=== PATIENT | male | born 1955 | race Caucasian/White ===

== ENCOUNTER 2016-09-30 07:37 | Day surgery (SDC) | payer BC, OTHER ==
--- NOTE | 2016-09-23 09:55 | HISTORY AND PHYSICAL E ---
History and Physical NAME: FAITH SHANNON : 1955 AGE: 61Y ADMITTED: 09/30/2016 ROOM: CHIEF COMPLAINT: History of polyps. PHYSICAL EXAMINATION: VITAL SIGNS: Blood pressure 130/70, pulse 80, respirations 20, temp 98. HEAD,EYES, EARS, NOSE, THROAT: Normal. ABDOMEN: Soft. NEUROLOGIC: Negative. HISTORY OF PRESENT ILLNESS: I saw the patient in 2002 where he presented with diarrhea and abdominal pain. Patient did have upper scope and it shows the following. Patient did have history of polyps. He has strong family history of colon cancer. He is referred to us by [facility]. Colonoscopy in 2007 shows hyperplastic polyp. The patient did have colonoscopy in 2011. It shows polyps in the rectum. His most recent colonoscopy was done in 2015 and it was non-conclusive, inadequate prep, question sessile polyp. The patient did have sessile polyp in the ascending colon between cecum and ascending. Biopsy obtained and the biopsy came back tubular adenoma. CONCLUSION: Right colon adenoma polyp. Poor prep on previous colon. PLAN: Colonoscopy. MEDICATIONS: 1. Naproxen. 2. Omeprazole. 3. Lisinopril. DICTATING PHYSICIAN: JENNY BOBBY M.D. [id number] PHY#: [id number] ID: [id number] JOB#: [id number] ACCT: [id number] cc:JENNY BOBBY M.D. >
[~2016-09-30 07:37] MED LIST: EPINEPHRINE INJ 1 MG/10 ML DISP.SYRIN ONE; FENTANYL CITRATE INJ/PF 100 MCG/2 ML AMPUL ONE; FLUMAZENIL INJ 0.5 MG/5 ML VIAL IV ONE; GLUCAGON,HUMAN RECOMB 1 MG INJ ONE; GLYCOPYRROLATE INJ 0.4 MG/2 ML VIAL ONE; LIDOCAINE 2% JELLY 30 ML TUBE ONE; NALOXONE HCL INJ/PF 0.4 MG/1 ML SDV ONE; ONDANSETRON HCL INJ/PF 4 MG/2 ML SDV ONE; PROMETHAZINE HCL INJ 25 MG/1 ML VIAL ONE
[2016-09-30] MEDS: MIDAZOLAM 2 MG/2 ML INJ ONE ×2 (08:05→08:15)
[2016-09-30 09:21] VITALS: BP 102/61
--- NOTE | 2016-09-30 10:34 | OPERATIVE REPORT E ---
Operative Report NAME: FAITH SHANNON : 1955 AGE: 61Y DATE OF SURGERY: 09/30/2016 ROOM: PREOPERATIVE DIAGNOSES: 1. History of polyps. 2. Colon screening. PROCEDURE: 1. Colonoscopy. 2. Tissue biopsy polyp transverse colon. SURGEON: JENNY BOBBY M.D. TISSUE REMOVED OR ALTERED: Biopsy polyp midtransverse colon, size 2-3 mm. DESCRIPTION: Rectal exam normal. Sigmoid descending colon normal. Transverse colon shows a small 3 mm polyp redundant transverse colon. Polyp biopsy obtained. Ascending colon normal. Cecum normal. Scope withdrawn. Cecum ascending normal. Transverse colon with a small 2-3 mm size polyp. Biopsy obtained. Sigmoid descending colon normal. Rectal normal. CONCLUSION: A small benign looking polyp, 2-3 mm, most likely adenoma. Biopsy obtained. Recommend followup colonoscopy in 2 years. DICTATING PHYSICIAN: JENNY BOBBY M.D. [id number] PHY#: [id number] ID: [id number] JOB#: [id number] ACCT: [id number] cc:JENNY BOBBY M.D. >
--- NOTE | 2016-09-30 10:34 | DISCHARGE SUMMARY E ---
Discharge Summary NAME: FAITH SHANNON : 1955 AGE: 61Y ADMITTED: 09/30/2016 DISCHARGED: 09/30/2016 PROCEDURE: Colonoscopy, biopsy. FINAL DIAGNOSIS: A 3 mm polyp in the mid transverse colon. HISTORY OF PRESENT ILLNESS: A 61-year-old gentleman presented for colon exam. He does have previous colonoscopy showing question adenoma polyps. Today's colonoscopy was successful to the cecum. Patient did have moderate amount of stool. Redundant transverse colon. Moderate amount of liquid stool in the transverse colon. Patient does have history of bronchitis, pneumonia, bilateral total hip replacement, reflux, and hypertension. Smokes 1/2 pack daily. He does have history of chronic pain and arthritis. Today's colonoscopy shows no evidence of malignancy. A 3 mm benign looking polyp most likely adenoma. Biopsy obtained. DISCHARGE PLAN: Soft diet. Hold naproxen and aspirin 3-5 days. Awaiting biopsy results. Consider age and followup colonoscopy after 2 years. DICTATING PHYSICIAN: JENNY BOBBY M.D. [id number] PHY#: [id number] ID: [id number] JOB#: [id number] ACCT: [id number] cc:JENNY BOBBY M.D. >
== END 2016-09-30 09:25 | disposition home or self-care (01) ==
LOC: END 07:37
PROVIDERS: ATTEND Specialist
PROC: 0DBL8ZX Excision of Transverse Colon, Via Natural or Artificial Opening Endoscopic, Diagnostic (ICD-10-PCS; principal; 2016-09-30 08:00)
DX: Z12.11 Encounter for screening for malignant neoplasm of colon (principal); D12.3 Benign neoplasm of transverse colon; Z96.643 Presence of artificial hip joint, bilateral; I10 Essential (primary) hypertension; K21.9 Gastro-esophageal reflux disease without esophagitis; F17.210 Nicotine dependence, cigarettes, uncomplicated; M19.90 Unspecified osteoarthritis, unspecified site; Z79.1 Long term (current) use of non-steroidal anti-inflammatories (NSAID); Z79.899 Other long term (current) drug therapy; Z88.0 Allergy status to penicillin
CPT/HCPCS: 45380; 88305 ×2; J2250; J3010; J1610; J2405; J0171; J2310; J2550; J3490

== ENCOUNTER 2017-01-11 08:25 | Emergency (ER) | payer BC, OTHER ==
--- NOTE | 2017-01-11 09:24 | ER Document Report ---
ED Medical Screen (RME) - General Chief Complaint: Diarrhea Stated Complaint: DIARRHEA Time Seen by Provider: 01/11/17 09:21 Mode of Arrival: Ambulatory Information source: Patient Notes: This is a 61-year-old male who presents to the ER with diarrhea for 1 week. He states that he has had multiple episodes of watery diarrhea every day for the past 6 days. He reports that this got even worse last night and that since midnight he has had at least 15 diarrhea stools. He states that he has a history of IBS and has seen GI in the past and had a colonoscopy in September. Also he was recently taken off several medications after being referred to a bindery manager for "kidney problem". He feels weak but denies any fevers or chills. He denies current abdominal pain. No nausea or vomiting. TRAVEL OUTSIDE OF THE [place] IN LAST 30 DAYS: No - Related Data Allergies/Adverse Reactions: No Known Allergies Allergy (Verified 09/30/16 07:45) Past Medical History - General Information source: Patient - Past Medical History Cardiac Medical History: Reports: Hx Hypercholesterolemia - meds x 2 years, Hx Hypertension Denies: Hx Atrial Fibrillation, Hx Congestive Heart Failure, Hx Coronary Artery Disease, Hx Heart Attack, Hx Peripheral Vascular Disease, Hx Pulmonary Embolism, Hx Heart Murmur Pulmonary Medical History: Reports: Hx Bronchitis, Hx Pneumonia Denies: Hx Asthma, Hx COPD, Hx Respiratory Failure, Hx Sleep Apnea, Hx Tuberculosis Neurological Medical History: Denies: Hx Cerebrovascular Accident, Hx Seizures Renal/ Medical History: Reports: Hx Kidney Stones - multiple, "passed", no surgical intervention or ESWL. Denies: Hx Benign Prostatic Hyperplasia, Hx End Stage Renal Disease, Hx Peritoneal Dialysis Malignancy Medical History: Denies Hx Lung Cancer GI Medical History: Reports: Hx Gastroesophageal Reflux Disease - meds x 4 years. Denies: Hx Crohn's Disease, Hx Hepatitis, Hx Hiatal Hernia, Hx Irritable Bowel, Hx Liver Failure, Hx Ulcer Musculoskeltal Medical History: Reports Hx Arthritis, Denies Hx Fibromyalgia, Denies Hx Muscular Dystrophy Traumatic Medical History: Reports: Hx Fractures - RT arm, no surgery, cast application only Infectious Medical History: Denies: Hx Hepatitis Past Surgical History: Denies: Hx Appendectomy, Hx Bowel Surgery, Hx Cholecystectomy, Hx Colostomy, Hx Coronary Artery Bypass Graft, Hx Gastric Bypass Surgery, Hx Herniorrhaphy, Hx Open Heart Surgery, Hx Pacemaker, Hx Tonsillectomy - Immunizations Hx Diphtheria, Pertussis, Tetanus Vaccination: Yes Review of Systems - Review of Systems Constitutional: See HPI. denies: Chills, Fever EENT: No symptoms reported Cardiovascular: No symptoms reported. denies: Chest pain Respiratory: No symptoms reported Gastrointestinal: See HPI Genitourinary: No symptoms reported Musculoskeletal: No symptoms reported Hematologic/Lymphatic: No symptoms reported Neurological/Psychological: No symptoms reported Physical Exam - Vital signs Vitals: Temp Pulse Resp BP Pulse Ox 98.6 F 81 18 139/80 H 98 01/11/17 08:34 01/11/17 08:34 01/11/17 08:34 01/11/17 08:34 01/11/17 08:34 - General General appearance: Appears well, Alert In distress: None - HEENT Head: Normocephalic, Atraumatic Mucous membranes: Moist - Respiratory Respiratory status: No respiratory distress Breath sounds: Normal - Cardiovascular Rhythm: Regular Heart sounds: Normal auscultation, S1 appreciated, S2 appreciated Murmur: No - Abdominal Inspection: Normal Distension: No distension Bowel sounds: Normal Tenderness: Nontender - Extremities General upper extremity: Normal inspection General lower extremity: Normal inspection Course - Re-evaluation Re-evalutation: 01/11/17 11:25 Patient has been asymptomatic in the emergency department and has been unable to give a stool sample to this point. His labs are reviewed and his electrolytes are stable today. He is hemodynamically stable. He is a benign nonsurgical abdominal exam. He does have chronic kidney disease that he is already following up with his primary and nephrology about this. At this point he is stable for outpatient management. He will follow-up with his physician tomorrow. Return precautions were discussed. - Vital Signs Vital signs: Temp Pulse Resp BP Pulse Ox 98.6 F 81 18 139/80 H 98 01/11/17 08:34 01/11/17 08:34 01/11/17 08:34 01/11/17 08:34 01/11/17 08:34 - Laboratory Result Diagrams: 01/11/17 09:29 01/11/17 09:29 Laboratory results interpreted by me: 01/11/17 01/11/17 09:29 09:29 RBC 4.31 L Creatinine 1.94 H Est GFR ( Amer) 43 L Est GFR (Non-Af Amer) 35 L Doctor's Discharge - Discharge Clinical Impression: Diarrhea Qualifiers: Diarrhea type: unspecified type Qualified Code(s): R19.7 - Diarrhea, unspecified Condition: Stable Disposition: HOME, SELF-CARE Additional Instructions: Diarrhea Diarrhea means frequent, watery stools. There are many causes. Any problem that keeps the intestinal tract from absorbing water from the stool can lead to diarrhea. A sudden new diarrhea problem is usually caused by a virus, food sensitivity, toxic bacteria, or drugs. In this case, we expect the problem to go away soon. Testing is done only if you seem seriously ill from the diarrhea. If you have chronic diarrhea, or diarrhea that keeps coming back, we need to find out why. Chronic diarrhea can be due to inflammation of the bowels such as Crohn's disease or ulcerative colitis, food sensitivity such as intolerance to lactose or wheat protein, irritable bowel syndrome, and other problems. If your diarrhea is a significant problem but it's not clear why you have it, we' ll refer you to a specialist for further testing. During an episode of diarrhea, drink small amounts (two to six ounces) of clear liquids (soft drinks, sport drinks, herb teas, broth, etc). Take fluids frequently to prevent dehydration. It's usually not a problem to take mild anti- diarrhea medication such as Kaopectate or Pepto-Bismol. As the diarrhea eases, advance to small amounts of bland food (mashed potato, toast) for 24 hours. Call the physician if blood appears in your vomit or stool, if vomiting lasts longer than 24 hours, if the abdominal pain worsens or becomes localized to one area, if you develop high fever, or if you become lightheaded and weak. As discussed, follow-up with your primary care physician in the next 24-48 hours. Please bring a stool sample when able to the lab for testing. Follow- up with her bindery manager regarding her kidney function. Return to the ER for severe abdominal pain, high fever, or any worsening symptoms or concerns. Prescriptions: Loperamide HCl [Imodium 2 mg Capsule] 2 mg PO Q4HP PRN #21 cap PRN Reason: Diarrhea
[2017-01-11 09:41] LABS: ABSOLUTE BASOPHILS # (AUTO) 0.1 10^3/uL (0.0-0.2); ABSOLUTE EOSINOPHILS # (AUTO) 0.3 10^3/uL (0.0-0.6); ABSOLUTE LYMPHOCYTES (AUTO) 2.2 10^3/uL (0.5-4.7); ABSOLUTE MONOCYTES (AUTO) 0.8 10^3/uL (0.1-1.4); ABSOLUTE NEUT (AUTO) 4.9 10^3/uL (1.7-8.2); BASOPHILS % (AUTO) 1.1 % (0-2); EOSINOPHILS % (AUTO) 3.5 % (0-6); HEMATOCRIT 39.9 % (37.9-51.0); HEMOGLOBIN 13.7 g/dL (13.5-17.0); HGB HCT DIFFERENCE 1.2; LYMPHOCYTES % (AUTO) 26.9 % (13-45); MEAN CORPUSCULAR HEMOGLOBIN 31.9 pg (27.0-33.4); MEAN CORPUSCULAR HGB CONC 34.5 g/dL (32.0-36.0); MEAN CORPUSCULAR VOLUME 93 fl (80-97); MONOCYTES % (AUTO) 10.1 % (3-13); RED BLOOD COUNT 4.31 10^6/uL (4.35-5.55); RED CELL DISTRIBUTION WIDTH 13.7 % (11.5-14.0); SEGMENTED NEUTROPHILS % (AUTO) 58.4 % (42-78); WHITE BLOOD COUNT 8.3 10^3/uL (4.0-10.5)
[2017-01-11 10:03] LABS: ALANINE AMINOTRANSFERASE 53 U/L (21-72); ALBUMIN 4.4 g/dL (3.5-5.0); ALKALINE PHOSPHATASE 64 U/L (38-126); ANION GAP 10 (5-19); ASPARTATE AMINO TRANSFERASE 35 U/L (17-59); BILIRUBIN,DIRECT 0.3 mg/dL (0.0-0.4); BILIRUBIN,TOTAL 0.6 mg/dL (0.2-1.3); BLOOD UREA NITROGEN 19 mg/dL (7-20); CALCIUM 9.5 mg/dL (8.4-10.2); CARBON DIOXIDE 27 mmol/L (22-30); CHLORIDE 106 mmol/L (98-107); CREATININE RESULT 1.94 mg/dL (0.52-1.25); GLUCOSE 88 mg/dL (75-110); POTASSIUM 4.8 mmol/L (3.6-5.0); SODIUM 143.3 mmol/L (137-145); TOTAL PROTEIN 7.4 g/dL (6.3-8.2)
[2017-01-11 12:11] VITALS: BP 123/75
== END 2017-01-11 11:40 | disposition home or self-care (01) ==
LOC: ER 08:25
DX: R19.7 Diarrhea, unspecified (principal); E78.00 Pure hypercholesterolemia, unspecified; I10 Essential (primary) hypertension; Z87.442 Personal history of urinary calculi
CPT/HCPCS: 36415; 80053; 85025; 99284

== ENCOUNTER → 2017-01-24 | Outpatient (CLI) | payer BC, OTHER ==
--- NOTE | 2017-01-24 08:36 | RADIOLOGY REPORT (SQ) ---
EXAM DESCRIPTION: CT ABD/PELVIS NO ORAL OR IV COMPLETED DATE/TIME: 01/24/2017 7:50 am REASON FOR STUDY: KIDNEY STONE (N20.0) N20.0 CALCULUS OF KIDNEY COMPARISON: May 2016 TECHNIQUE: CT scan of the abdomen and pelvis performed without intravenous or oral contrast. Images reviewed with lung, soft tissue, and bone windows. Reconstructed coronal and sagittal MPR images revi ewed. All images stored on PACS. All CT scanners at this facility use dose modulation, iterative reconstruction, and/or weight based d osing when appropriate to reduce radiation dose to as low as reasonably achievable (ALARA). [facility]: Dose Right [facility]: CareDose [facility]: Dose Right [facility]: Teradose 4D [facility]: Kochzauber RADIATION DOSE: 24.15mGy. LIMITATIONS: Pelvic images are limited due to artifact related to bilateral hip prostheses. FINDINGS: LOWER CHEST: A calcified hilar lymph node and a couple calcified granuloma are identified in the right lower hemithorax. No acute consolidations or pleural effusions are identified. NON-CONTRASTED LIVER, SPLEEN, ADRENALS: Evaluation limited by lack of IV contrast. No identified sign ificant masses. Benign splenic calcifications are again identified. PANCREAS: No masses. No peripancreatic inflammatory changes. GALLBLADDER: No identified stones by CT criteria. No inflammatory changes to suggest cholecystitis. RIGHT KIDNEY AND URETER: No suspicious masses. Assessment limited by lack of IV contrast. Multiple nonobstructing renal calculi are again identified. There appears to be a partially obstructing urete frederick calculus measuring 9 x 7 mm in diameters in the mid ureter with a CT number of 1,182. There is mild fullness of the right pelvocaliceal system and right ureter proximal to this level. LEFT KIDNEY AND URETER: No suspicious masses. Small renal cyst is again identified. Assessment limi georgina by lack of IV contrast. Multiple nonobstructing renal calculi are again identified. No hydron ephrosis or hydroureter. AORTA AND RETROPERITONEUM: No aneurysm. No retroperitoneal masses or adenopathy. BOWEL AND PERITONEAL CAVITY: No obvious masses or inflammatory changes. No free fluid. APPENDIX: Not identified PELVIS, BLADDER, AND ABDOMINAL WALL: Limited visualization. No abnormal masses. No free fluid. Blad april normal. BONES: Degenerative changes are identified in the lower lumbar spine. OTHER: No other significant finding. IMPRESSION: Multiple bilateral nonobstructing renal calculi are again identified. There appears to be a partially obstructing ureteric calculus measuring 9 x 7 mm in diameters in the right mid ureter best seen on image number 61 which appears to be partially obstructing. Clinical correlation is david mmended. Other findings as noted above TECHNICAL DOCUMENTATION: JOB ID: [id number] Quality ID # [id number]: Final reports with documentation of one or more dose reduction techniques (e.g., Au tomated exposure control, adjustment of the mA and/or kV according to patient size, use of iterative reconstruction technique) 2010 [employer]- All Rights Reserved
== END ==
LOC: RAD 07:18
PROVIDERS: ATTEND Urology
DX: N20.0 Calculus of kidney (principal)
CPT/HCPCS: 74176

== ENCOUNTER 2018-09-22 07:16 | Day surgery (SDC) | payer MEDICARE, BC, OTHER ==
[~2018-09-22 07:16] MED LIST changes: -EPINEPHRINE INJ 1 MG/10 ML DISP.SYRIN ONE; -FENTANYL CITRATE INJ/PF 100 MCG/2 ML AMPUL ONE; -FLUMAZENIL INJ 0.5 MG/5 ML VIAL IV ONE; -GLUCAGON,HUMAN RECOMB 1 MG INJ ONE; -GLYCOPYRROLATE INJ 0.4 MG/2 ML VIAL ONE; +LACTATED RINGERS 1000 ML IV PRN; +LIDOCAINE 0.5% INJ-PF (5 MG/ML) 50 ML SDV SUBCUT PRN; -LIDOCAINE 2% JELLY 30 ML TUBE ONE; -NALOXONE HCL INJ/PF 0.4 MG/1 ML SDV ONE; -ONDANSETRON HCL INJ/PF 4 MG/2 ML SDV ONE; -PROMETHAZINE HCL INJ 25 MG/1 ML VIAL ONE
[2018-09-22] MEDS ORDERED: ALBUTEROL SULFATE 0.083% NEB 2.5 MG/3 ML AMPUL NEB ONE (07:33)
[2018-09-22] MEDS ORDERED: PROPOFOL INJ 200 MG/20 ML VIAL IV ONE (08:28)
[2018-09-22] MEDS ORDERED: DIPHENHYDRAMINE HCL 50 MG/ML VIAL IV PRN (09:37)
[2018-09-22] MEDS ORDERED: PROMETHAZINE HCL INJ 25 MG/1 ML VIAL IV PRN ×2 (09:37)
[2018-09-22] MEDS ORDERED: FENTANYL CITRATE INJ/PF 100 MCG/2 ML AMPUL IV PRN ×3 (09:37)
[2018-09-22] MEDS ORDERED: MEPERIDINE HCL/PF INJ 25 MG/1 ML DISP.SYRIN IV PRN (09:37)
[2018-09-22] MEDS ORDERED: LIDOCAINE 2% INJ-PF (20 MG/ML) 10 ML AMPUL ONE (09:41)
[2018-09-22 10:50] VITALS: BP 117/76
--- NOTE | 2018-09-22 11:17 | Operative Report ---
Operative Report DATE OF SURGERY: 09/22/18 Operative Report: The risks, benefits and alternatives of the procedure including the risk of bleeding, perforation requiring surgery have been explained to the patient in detail and informed consent obtained. The patient is brought back to the operating room and placed in the left, lateral decubital position. Timeout was called. Propofol medication is administered. A rectal examination is done which did not reveal any masses, tears or fissures. An Olympus videoscope was introduced into the patient's rectum. The scope was then carefully advanced all the way to the cecum. The cecum was identified by the usual anatomical landmarks including the ileocecal valve as well as the appendiceal office. Photodocumentation is obtained. The scope was then sequentially pulled back via the various segments of the colon including the ascending colon, hepatic flexure, transverse colon, splenic flexure, descending colon and finally into the rectosigmoid portions of the colon. Retroflexion maneuver was performed. PREOPERATIVE DIAGNOSIS: Personal history of polyp POSTOPERATIVE DIAGNOSIS: Cecal polyp was visualized and removed via biopsy forceps. Left-sided colon inflammation status post biopsy. Internal hemorrhoids OPERATION: Colonoscopy with biopsy SURGEON: ZAIRE FRANKS ANESTHESIA: LMAC TISSUE REMOVED OR ALTERED: As noted above. COMPLICATIONS: None. ESTIMATED BLOOD LOSS: None. INTRAOPERATIVE FINDINGS: As noted above. PROCEDURE: Patient tolerated the procedure well. No immediate postprocedure complications are noted. Patient discharged in good condition. Discharge date 09/22/2018. Discharge diet: Regular. Discharge activity: Regular. 2-3-week follow-up to discuss findings. Patient is instructed call the office or proceed to the emergency room should there be any further problems or questions. Depending on the pathology of the polyp 3-5-year surveillance.
== END 2018-09-22 10:30 | disposition home or self-care (01) ==
LOC: OROUT 07:16
PROVIDERS: ATTEND Internal Medicine Gastroenterology
DX: Z12.11 Encounter for screening for malignant neoplasm of colon (principal); D12.0 Benign neoplasm of cecum; K52.9 Noninfective gastroenteritis and colitis, unspecified; K64.8 Other hemorrhoids; Z86.010 Personal history of colon polyps; Z09 Encounter for follow-up examination after completed treatment for conditions other than malignant neoplasm; Z87.19 Personal history of other diseases of the digestive system; F17.210 Nicotine dependence, cigarettes, uncomplicated; Z79.899 Other long term (current) drug therapy
CPT/HCPCS: 45380; 36415; 84132; 88305 ×2; 94640; J2704; J3490; A9270; 811

== ENCOUNTER 2019-04-01 12:32 | Emergency (ER) | payer MEDICARE, BC, OTHER ==
[2019-04-01] MEDS ORDERED: HEPARIN SOD (PORCINE) 1,000 UNIT/ML 10 ML VIAL IV ONE (12:56)
[2019-04-01] MEDS ORDERED: HEPARIN SODIUM,PORCINE/D5W 25,000 UNIT/250 ML RTUINJ IV PRN (12:56)
[2019-04-01] MEDS ORDERED: NICARDIPINE HCL RTU, ISO-OS 20 MG/200 ML RTUINJ IV PRN (12:58)
[2019-04-01] MEDS ORDERED: NICARDIPINE IV ONE (12:59)
[2019-04-01] MEDS ORDERED: [UNRECOGNIZED DRUG - OTHER] IV ONE (12:59)
[2019-04-01] MEDS ORDERED: HEPARIN SODIUM,PORCINE/D5W 25,000 UNIT/250 ML RTUINJ IV ONE (13:00)
[2019-04-01 13:06] LABS: ABSOLUTE BASOPHILS # (AUTO) 0.2 10^3/uL (0.0-0.2); ABSOLUTE EOSINOPHILS # (AUTO) 0.4 10^3/uL (0.0-0.6); ABSOLUTE LYMPHOCYTES (AUTO) 2.5 10^3/uL (0.5-4.7); ABSOLUTE MONOCYTES (AUTO) 0.9 10^3/uL (0.1-1.4); ABSOLUTE NEUT (AUTO) 6.3 10^3/uL (1.7-8.2); BASOPHILS % (AUTO) 1.5 % (0-2); EOSINOPHILS % (AUTO) 4.1 % (0-6); HEMATOCRIT 48.6 % (37.9-51.0); HEMOGLOBIN 16.6 g/dL (13.5-17.0); LYMPHOCYTES % (AUTO) 24.3 % (13-45); MEAN CORPUSCULAR HEMOGLOBIN 31.3 pg (27.0-33.4); MEAN CORPUSCULAR HGB CONC 34.1 g/dL (32.0-36.0); MEAN CORPUSCULAR VOLUME 92 fl (80-97); MONOCYTES % (AUTO) 8.7 % (3-13); RED BLOOD COUNT 5.29 10^6/uL (4.35-5.55); RED CELL DISTRIBUTION WIDTH 14.9 % (11.5-14.0); SEGMENTED NEUTROPHILS % (AUTO) 61.4 % (42-78); TOTAL CELLS COUNTED % (AUTO) 100 %; WHITE BLOOD COUNT 10.3 10^3/uL (4.0-10.5)
[2019-04-01 13:07] LABS: INTERNATIONAL RATION (INR) 0.91; PARTIAL THROMBOPLASTIN TIME 24.7 SEC (23.5-35.8); PROTHROMBIN TIME 12.2 SEC (11.4-15.4)
--- NOTE | 2019-04-01 13:09 | ER Document Report ---
ED Cardiac - General Chief Complaint: Chest Pain Stated Complaint: CHEST PAIN Time Seen by Provider: 04/01/19 12:55 Primary Care Provider: ELIGIO CAMPA MD [Primary Care Provider] - Follow up as needed TRAVEL OUTSIDE OF THE [place] IN LAST 30 DAYS: No - HPI Notes: Patient is a 64-year-old male that presents to the emergency department for chief complaint of chest pain. Patient reports right-sided chest pain that started at 9 AM this morning while riding a bike. He states he had gone about a mile and a half when the pain started. He does ride his bicycle daily and this is abnormal for him. He states he had a similar pain yesterday that resolved after resting for about 30 minutes. Patient's pain today has been constant since onset at 930. He does have radiation up into his right neck and jaw. He denies associated diaphoresis nausea or shortness of breath. He denies history of [place] in the past. Patient does smoke cigarettes daily and has a history of hypertension which he states is usually well controlled. He does not know when his last stress test was. Past Medical History: Hypertension Past Surgical History: Reviewed in chart Social History: Daily tobacco. Denies alcohol or drug use Family History: Reviewed and noncontributory for presenting illness Allergies: Reviewed, see documented allergy list. REVIEW OF SYSTEMS: CONSTITUTIONAL : No fever No chills No diaphoresis No recent illness EENT: No vision changes No congestion No sore throat CARDIOVASCULAR: chest pain No palpitations RESPIRATORY: No shortness of breath No cough No difficulty breathing GASTROINTESTINAL: No abdominal pain No nausea No vomiting No diarrhea GENITOURINARY: No dysuria No hematuria No difficulty urinating MUSCULOSKELETAL: No back pain No leg pain No arm pain SKIN: No rashes No lesions LYMPHATIC: No swollen, enlarged glands. NEUROLOGICAL: No lightheadedness No headache No weakness No paresthesias PSYCHIATRIC: No anxiety No depression PHYSICAL EXAMINATION: Vital signs reviewed, nursing noted reviewed. GENERAL: Ill-appearing, obese and in no acute distress. HEAD: Atraumatic, normocephalic. EYES: Eyes appear normal, extraocular movements intact, sclera anicteric, conjunctiva are normal. ENT: nares patent, oropharynx clear without exudates. Moist mucous membranes. NECK: Normal range of motion, supple without lymphadenopathy LUNGS: Breath sounds clear to auscultation bilaterally and equal. No wheezes rales or rhonchi. HEART: Regular rate and rhythm without murmurs, +2/4 bilateral radial pulses ABDOMEN: Soft, nontender, normoactive bowel sounds. No rebound, guarding, or rigidity. No masses appreciated. EXTREMITIES: Nontender, good range of motion, no pitting or edema. NEUROLOGICAL: No focal neurological deficits. Moves all extremities spontaneously Motor and sensory grossly intact on exam. PSYCH: Normal mood, normal affect. SKIN: Warm, mildly diaphoretic, normal turgor, no rashes or lesions noted on exposed skin - Related Data Allergies/Adverse Reactions: No Known Allergies Allergy (Verified 04/01/19 12:33) Past Medical History - Social History Smoking Status: Current Every Day Smoker Family History: Reviewed & Not Pertinent - Past Medical History Cardiac Medical History: Reports: Hx Hypercholesterolemia - meds x 2 years, Hx Hypertension Denies: Hx Atrial Fibrillation, Hx Congestive Heart Failure, Hx Coronary Artery Disease, Hx Heart Attack, Hx Peripheral Vascular Disease, Hx Pulmonary Embolism, Hx Heart Murmur Pulmonary Medical History: Reports: Hx Bronchitis, Hx Pneumonia Denies: Hx Asthma, Hx COPD, Hx Respiratory Failure, Hx Sleep Apnea, Hx Tuberculosis Neurological Medical History: Denies: Hx Cerebrovascular Accident, Hx Seizures Renal/ Medical History: Reports: Hx Kidney Stones - multiple, "passed", no surgical intervention or ESWL. Denies: Hx Benign Prostatic Hyperplasia, Hx End Stage Renal Disease, Hx Peritoneal Dialysis Malignancy Medical History: Denies Hx Lung Cancer GI Medical History: Reports: Hx Gastroesophageal Reflux Disease - meds x 4 years. Denies: Hx Crohn's Disease, Hx Hepatitis, Hx Hiatal Hernia, Hx Irritable Bowel, Hx Liver Failure, Hx Pancreatitis, Hx Ulcer Musculoskeletal Medical History: Reports Hx Arthritis, Denies Hx Fibromyalgia, Denies Hx Muscular Dystrophy Traumatic Medical History: Reports: Hx Fractures - RT arm, no surgery, cast application only Infectious Medical History: Denies: Hx Hepatitis Past Surgical History: Denies: Hx Appendectomy, Hx Bowel Surgery, Hx Cholecystectomy, Hx Colostomy, Hx Coronary Artery Bypass Graft, Hx Gastric Bypass Surgery, Hx Herniorrhaphy, Hx Open Heart Surgery, Hx Pacemaker, Hx Tonsillectomy - Immunizations Hx Diphtheria, Pertussis, Tetanus Vaccination: Yes Hx Pneumococcal Vaccination: 06/15/16 Physical Exam - Vital signs Vitals: Temp Pulse Resp BP Pulse Ox 98.5 F 78 18 165/93 H 95 04/01/19 12:47 04/01/19 12:47 04/01/19 12:47 04/01/19 12:47 04/01/19 12:47 Course - Re-evaluation Re-evalutation: 04/01/19 13:07 Vitals reviewed. Nursing notes reviewed. EKG shows STEMI with ST elevation in lead III and aVF. Patient's case discussed with taxicab starter Dr. Manning at [facility] who has accepted patient for transfer. He has no contraindication to lytics and will receive TNKase, heparin, aspirin and Plavix. Patient in agreement with transfer and plan of care. He did have initially elevated blood pressure and Cardene has been ordered to keep his blood pressure less than 180/110. Current BP 164/104. 04/01/19 13:24 After receiving TNKase patient's chest pain resolved. His repeat EKG shows resolution of the ST elevation inferiorly. Currently patient is chest pain-free and stable for transfer. - Vital Signs Vital signs: Temp Pulse Resp BP Pulse Ox 98.5 F 78 15 162/111 H 96 04/01/19 12:47 04/01/19 12:47 04/01/19 13:44 04/01/19 13:44 04/01/19 13:44 - Laboratory Result Diagrams: 04/01/19 12:58 04/01/19 12:58 Laboratory results interpreted by me: 04/01/19 04/01/19 12:58 12:58 RDW 14.9 H Creatinine 1.68 H Est GFR ( Amer) 50 L Est GFR (Non-Af Amer) 41 L Calcium 10.6 H - EKG Interpretation by Me Additional EKG results interpreted by me: 04/01/19 13:08 Interpreted by myself 1242: Normal sinus rhythm, rate 77, ST elevation in lead III and aVF, mild ST depression 1 and aVL. Acute STEMI new compared to 01/08/2015 04/01/19 13:24 Interpreted by myself 1317: Normal sinus rhythm, rate 83, normal axis, no ST elevations, improved from initial Critical Care Note - Critical Care Note Total time excluding time spent on procedures (mins): 35 Comments: Critical care time 35 exclusive from separate billable procedures for a patient requiring complex medical decision making, and high potential for clinical deterioration. Time spent obtaining history from patient or surrogate, discussions with consultants, development of treatment plan with patient or surrogate, evaluation of patient's response to treatment, examination of patient, ordering and performing treatments and interventions, ordering and review of laboratory studies, re-evaluation of patient's condition, ordering and review of radiographic studies and review of old charts Discharge - Discharge Clinical Impression: STEMI (ST elevation myocardial infarction) Qualifiers: Involved coronary artery: other coronary artery Qualified Code(s): I21.29 - ST elevation (STEMI) myocardial infarction involving other sites Condition: Stable Disposition: [facility] Referrals: ELIGIO CAMPA MD [Primary Care Provider] - Follow up as needed
[2019-04-01 13:13] LABS: ALBUMIN 4.7 g/dL (3.5-5.0); ALKALINE PHOSPHATASE 69 U/L (38-126); ANION GAP 10 (5-19); ASPARTATE AMINO TRANSFERASE 29 U/L (17-59); BILIRUBIN,DIRECT 0.4 mg/dL (0.0-0.4); BILIRUBIN,TOTAL 0.6 mg/dL (0.2-1.3); BLOOD UREA NITROGEN 18 mg/dL (7-20); CALCIUM 10.6 mg/dL (8.4-10.2); CARBON DIOXIDE 26 mmol/L (22-30); CHLORIDE 102 mmol/L (98-107); GLUCOSE 110 mg/dL (75-110); POTASSIUM 4.5 mmol/L (3.6-5.0); TOTAL PROTEIN 8.1 g/dL (6.3-8.2)
[2019-04-01 13:35] LABS: PLATELET COUNT 227 10^3/uL (150-450)
[2019-04-01 13:45] VITALS: BP 162/111
--- NOTE | 2019-04-01 13:48 | RADIOLOGY REPORT (SQ) ---
EXAM DESCRIPTION: CHEST SINGLE VIEW COMPLETED DATE/TIME: 04/01/2019 1:36 pm REASON FOR STUDY: STEMI COMPARISON: 01/08/2015 TECHNIQUE: Single frontal radiographic view of the chest acquired. NUMBER OF VIEWS: One view. LIMITATIONS: None. FINDINGS: LUNGS AND PLEURA: No pneumothorax. No consolidation or pleural effusion. MEDIASTINUM AND HILAR STRUCTURES: Stable. HEART AND VASCULAR STRUCTURES: Stable. BONES: No acute findings. HARDWARE: None in the chest. OTHER: No other significant finding. IMPRESSION: NO ACUTE FINDINGS. TECHNICAL DOCUMENTATION: JOB ID: [id number] [place]-72 2010 [employer]- All Rights Reserved Reading location - IP/workstation name: Enject
[2019-04-01] MEDS ORDERED: HEPARIN SOD (PORCINE) 1,000 UNIT/ML 10 ML VIAL IV PRN (15:56)
[2019-04-01] MEDS ORDERED: ASPIRIN 81 MG TABLET, CHEWABLE ONE (16:12)
[2019-04-01] MEDS ORDERED: CLOPIDOGREL BISULFATE 300 MG TABLET ONE (16:12)
[2019-04-01] MEDS ORDERED: TENECTEPLASE INJ 50 MG KIT IV ONE (16:12)
--- NOTE | 2019-04-02 00:27 | EKG REPORT ---
SEVERITY:- ABNORMAL ECG - SINUS RHYTHM INCOMPLETE RIGHT BUNDLE BRANCH BLOCK : Confirmed by: Jax Lindsay 02-Apr-2019 00:26:42
--- NOTE | 2019-04-02 00:27 | EKG REPORT ---
SEVERITY:- ABNORMAL ECG - SINUS RHYTHM RBBB AND LPFB : Confirmed by: Jax Lindsay 02-Apr-2019 00:26:37
== END 2019-04-01 13:57 | disposition short-term general hospital (02) ==
LOC: ER 12:32
DX: I21.29 ST elevation (STEMI) myocardial infarction involving other sites (principal); R07.9 Chest pain, unspecified; M54.2 Cervicalgia; R68.84 Jaw pain; I10 Essential (primary) hypertension; F17.210 Nicotine dependence, cigarettes, uncomplicated; Z79.899 Other long term (current) drug therapy
CPT/HCPCS: 93005; 36415; 85025; 85610; 85730; 80053; 84484; 71045; 93010; J3101; A9270 ×2; J1644 ×2; 96365; 96376; 99285; J3490

== ENCOUNTER 2020-05-12 13:03 | Emergency (ER) | payer MEDICARE, BC, OTHER ==
[2020-05-12 13:38] LABS: ABSOLUTE BASOPHILS # (AUTO) 0.1 10^3/uL (0.0-0.2); ABSOLUTE EOSINOPHILS # (AUTO) 0.3 10^3/uL (0.0-0.6); ABSOLUTE LYMPHOCYTES (AUTO) 1.6 10^3/uL (0.5-4.7); ABSOLUTE MONOCYTES (AUTO) 0.6 10^3/uL (0.1-1.4); ABSOLUTE NEUT (AUTO) 4.8 10^3/uL (1.7-8.2); BASOPHILS % (AUTO) 0.8 % (0-2); EOSINOPHILS % (AUTO) 4.3 % (0-6); HEMATOCRIT 39.3 % (37.9-51.0); HEMOGLOBIN 13.6 g/dL (13.5-17.0); LYMPHOCYTES % (AUTO) 21.1 % (13-45); MEAN CORPUSCULAR HGB CONC 34.5 g/dL (32.0-36.0); MEAN CORPUSCULAR VOLUME 93 fl (80-97); MONOCYTES % (AUTO) 8.3 % (3-13); PLATELET COUNT 214 10^3/uL (150-450); RED BLOOD COUNT 4.24 10^6/uL (4.35-5.55); SEGMENTED NEUTROPHILS % (AUTO) 65.5 % (42-78); TOTAL CELLS COUNTED % (AUTO) 100 %; WHITE BLOOD COUNT 7.3 10^3/uL (4.0-10.5)
--- NOTE | 2020-05-12 13:55 | RADIOLOGY REPORT (SQ) ---
EXAM DESCRIPTION: CHEST SINGLE VIEW IMAGES COMPLETED DATE/TIME: 05/12/2020 1:32 pm REASON FOR STUDY: bed 12 chest pain COMPARISON: AP view of the chest from 04/01/2019. EXAM PARAMETERS: NUMBER OF VIEWS: One view. TECHNIQUE: An AP view of the chest was obtained. RADIATION DOSE: NA LIMITATIONS: None. FINDINGS: LUNGS AND PLEURA: Calcified granuloma in the right lower lobe. There is no acute consolid ation, pleural effusion or pneumothorax. MEDIASTINUM AND HILAR STRUCTURES: No mediastinal or hilar contour abnormality. HEART AND VASCULAR STRUCTURES: The cardiac silhouette and pulmonary vasculature are within normal hall its. BONES: No acute findings. HARDWARE: None in the chest. OTHER: No other finding. IMPRESSION: No acute cardiopulmonary process. TECHNICAL DOCUMENTATION: JOB ID: [id number] 2010 [employer]- All Rights Reserved Reading location - IP/workstation name: [email or web address]
[2020-05-12 14:02] LABS: ALBUMIN 3.4 g/dL (3.5-5.0); ALKALINE PHOSPHATASE 79 U/L (38-126); ANION GAP 5 (5-19); ASPARTATE AMINO TRANSFERASE 24 U/L (17-59); BILIRUBIN,DIRECT 0.3 mg/dL (0.0-0.4); BILIRUBIN,TOTAL 0.6 mg/dL (0.2-1.3); BLOOD UREA NITROGEN 13 mg/dL (7-20); CALCIUM 8.5 mg/dL (8.4-10.2); CARBON DIOXIDE 25 mmol/L (22-30); CHLORIDE 108 mmol/L (98-107); CREATINE KINASE 66 U/L (55-170); GLUCOSE 90 mg/dL (75-110); POTASSIUM 4.2 mmol/L (3.6-5.0); TOTAL PROTEIN 5.8 g/dL (6.3-8.2)
[2020-05-12 14:14] LABS: CREATINE KINASE MB 1.17 ng/mL (<4.55)
[2020-05-12 14:17] LABS: TROPONIN I < 0.012 ng/mL
--- NOTE | 2020-05-12 16:12 | ER Document Report ---
ED General - General Chief Complaint: Chest Pain Stated Complaint: CHEST PAIN Time Seen by Provider: 05/12/20 14:54 Primary Care Provider: SINCERE MENJIVAR MD [Primary Care Provider] - Follow up as needed Mode of Arrival: Ambulatory Information source: Patient Notes: Patient is a 65-year-old male coming in today with chief complaint of sudden spasmodic right-sided chest pain that started approximately 2 hours prior to arrival. Patient has a history of stents and chronic angina. He states it started while he was at rest. The pain was so intense that he did take 2 nitroglycerin tablets. [place] like it was going to improve after the first but then continued. By the time the symptoms had gone on for about an hour and a half, he called the ambulance service who brought him here. By the time he arrived he was asymptomatic. Patient states that he sees [facility]. TRAVEL OUTSIDE OF THE [place] IN LAST 30 DAYS: No - Related Data Allergies/Adverse Reactions: No Known Allergies Allergy (Verified 05/12/20 13:29) Home Medications: Potassium, isosorbide, clopidigrel, losartan, metropolol, melxicam Past Medical History - Social History Smoking Status: Current Every Day Smoker Family History: Reviewed & Not Pertinent Patient has homicidal ideation: No - Past Medical History Cardiac Medical History: Reports: Hx Hypercholesterolemia - meds x 2 years, Hx Hypertension Denies: Hx Atrial Fibrillation, Hx Congestive Heart Failure, Hx Coronary Artery Disease, Hx Heart Attack, Hx Peripheral Vascular Disease, Hx Pulmonary Embolism, Hx Heart Murmur Pulmonary Medical History: Reports: Hx Bronchitis, Hx Pneumonia Denies: Hx Asthma, Hx COPD, Hx Respiratory Failure, Hx Sleep Apnea, Hx Tuberculosis Neurological Medical History: Denies: Hx Cerebrovascular Accident, Hx Seizures Renal/ Medical History: Reports: Hx Kidney Stones - multiple, "passed", no surgical intervention or ESWL. Denies: Hx Benign Prostatic Hyperplasia, Hx End Stage Renal Disease, Hx Peritoneal Dialysis Malignancy Medical History: Denies Hx Lung Cancer GI Medical History: Reports: Hx Gastroesophageal Reflux Disease - meds x 4 years. Denies: Hx Crohn's Disease, Hx Hepatitis, Hx Hiatal Hernia, Hx Irritable Bowel, Hx Liver Failure, Hx Pancreatitis, Hx Ulcer Musculoskeletal Medical History: Reports Hx Arthritis, Denies Hx Fibromyalgia, Denies Hx Muscular Dystrophy Traumatic Medical History: Reports: Hx Fractures - RT arm, no surgery, cast a pplication only Infectious Medical History: Denies: Hx Hepatitis Past Surgical History: Denies: Hx Appendectomy, Hx Bowel Surgery, Hx Cholecystectomy, Hx Colostomy, Hx Coronary Artery Bypass Graft, Hx Gastric Bypass Surgery, Hx Herniorrhaphy, Hx Open Heart Surgery, Hx Pacemaker, Hx Tonsillectomy - Immunizations Hx Diphtheria, Pertussis, Tetanus Vaccination: Yes Hx Pneumococcal Vaccination: 06/15/16 Review of Systems - Review of Systems Notes: Constitutional: No fevers. No chills. EENT: No eye redness. No eye pain. No ear pain. No sore throat. Cardiovascular: +chest pain. No palpitations. Respiratory: No cough. No shortness of breath. No respiratory distress. Gastrointestinal: No abdominal pain. No nausea, vomiting, or diarrhea. Genitourinary: Atraumatic. No lesions. No pain. No discharge. Musculoskeletal: Atraumatic. No swelling. No deformities. Skin: No rash or lesions. Lymphatic: No swollen lymph nodes. Neurologic: No headache. No syncope. Psychiatric: No suicidal or homicidal ideation. Physical Exam - Vital signs Vitals: Resp Pulse Ox 18 97 05/12/20 13:10 05/12/20 13:10 - Notes Notes: General: Well-developed, well-nourished. In no acute distress. Non-toxic ap pearing. Cardiac: Well-perfused. Regular rate and rhythm. No murmurs, rubs, or gallops. Pulmonary: No respiratory distress. No cyanosis. Bilateral lung fiels are clear to auscultation. Abdominal: Non-distended. Non-rigid. Bowels sounds are present in all four quadrants. No guarding or rebound. HEENT: Head is atraumatic. Conjunctivae not reddened. No tearing. PERRL. EOMI. Orbits atraumatic. No periorbital swelling or erythema. Oropharynx is without erythema, swelling, or exudates. Neck: Supple. No adenopathy. No meningismus. Dermatologic: Warm with good turgor. No rash. Atraumatic. Chest: Atraumatic. No chest wall tenderness to palpation. Musculoskeletal: Moves all extremities well. No range of motion deficits. no muscular or joint tenderness. No paraspinal muscle tenderness. no midline spinal tenderness or step-off. Genitourinary: Examination deferred Neurologic: No gross neurologic deficits. Psychiatric: Normal mood. Course - Re-evaluation Re-evalutation: 05/12/20 16:10 Patient is currently symptom-free. By the time I am evaluating him, his work-up is complete. He has a normal EKG sinus rhythm with no ST changes. His chest x- ray shows no acute disease. His initial troponin is negative. I made a phone call to Dr. Mcwilliams from [facility]. He reports that the patient had a negative stress test recently. He does report that he has had some concern about the patient having symptoms. He feels that based on the atypical presentation, the patient can stay for a repeat troponin. As long as this is negative, recommends upping isosorbide to 60 mg/day and follow-up with the off ice. Patient will most likely need cardiac catheterization as an outpatient. I discussed this plan with the patient and he is amenable. Awaiting second troponin. 05/12/20 16:27 05/12/20 17:03 Patient's repeat troponin is also negative. Per discussion with his electrostatic painter, will tell him to increase his isosorbide to 60 mg daily and follow-up as an outpatient. Will encourage him to call the office tomorrow to set up follow-up. - Vital Signs Vital signs: Temp Pulse Resp BP Pulse Ox 19 116/79 98 05/12/20 13:11 05/12/20 13:11 05/12/20 13:12 - Laboratory Result Diagrams: 05/12/20 13:17 05/12/20 13:17 Laboratory results interpreted by me: 05/12/20 05/12/20 13:17 13:17 RBC 4.24 L RDW 16.0 H Chloride 108 H Creatinine 1.47 H Est GFR ( Amer) 58 L Est GFR (MDRD) Non-Af 48 L Total Protein 5.8 L Albumin 3.4 L - EKG Interpretation by Me EKG shows normal: Sinus rhythm Rate: Normal Rhythm: NSR Discharge - Discharge Clinical Impression: Atypical chest pain, History of angina Condition: Good Disposition: HOME, SELF-CARE Instructions: Chest Pain of Unclear Cause ([facility]) Additional Instructions: After a discussion with your electrostatic painter, he recommends that you increase your isosorbide to 60 mg a day instead of 30. He wants you to follow-up with your electrostatic painter as an outpatient. Recommend that she call the office tomorrow and let them know that you were here and that you are to be seen in the office. If you have increased or worsening symptoms she may always return to the emergency department. Referrals: SINCERE MENJIVAR MD [Primary Care Provider] - Follow up as needed
[2020-05-12 17:36] VITALS: BP 128/77
--- NOTE | 2020-05-12 17:49 | EKG REPORT ---
SEVERITY:- ABNORMAL ECG - SINUS RHYTHM IRBBB AND LPFB LOW VOLTAGE IN FRONTAL LEADS AND PRECORDIAL LEADS. : Confirmed by: Thierry Torres MD 12-May-2020 17:48:30
== END 2020-05-12 17:36 | disposition home or self-care (01) ==
LOC: ER 13:03
DX: I20.9 Angina pectoris, unspecified (principal); R07.89 Other chest pain; I10 Essential (primary) hypertension; F17.200 Nicotine dependence, unspecified, uncomplicated; M19.90 Unspecified osteoarthritis, unspecified site; Z79.899 Other long term (current) drug therapy; Z79.02 Long term (current) use of antithrombotics/antiplatelets; Z79.1 Long term (current) use of non-steroidal anti-inflammatories (NSAID)
CPT/HCPCS: 36415; 71045; 80053; 82550; 82553; 84484; 85025; 93005; 93010; 99285